=== PATIENT | male | born 1975 | race Caucasian/White ===

== ENCOUNTER 2019-06-26 13:58 | Outpatient (RCR) | payer OTHER, SELFPAY ==
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
--- NOTE | 2019-07-16 10:16 | PCPTNOTE ---
Pt has been contacted for therapy following insurance approval. He scheduled 07/20/19 due to being out of town. He will be do for his re-eval next week.
--- NOTE | 2019-07-21 08:38 | PCPTNOTE ---
Patient called & cancelled scheduled appointment this date due to being stuck out of town due to COVID-19, unable to return home at this time with travel arrangements.
--- NOTE | 2019-08-10 14:24 | PCPTNOTE ---
Admitting Provider: Dr. Guillermo Alvarenga MD Attending Provider: PHYSICIAN NOT ON STAFF Patient:Quique Rollins Date of :1975 Patient has not returned for any further treatments since initial evaluation on 06/26/2019, therefore he will be discharged at this time. Patient?s initial visit was on 06/26/2019 14:00 and he had a total of 1 visits. He called and cancelled his follow-up visits. The goals have not been met. Thank you for referring this patient to [facility]. Please review, sign, date and return this discharge summary DENA. I have been updated about the patient's current status and I agree with discharge from the above service at this time. Referring Physician Date
== END 2019-08-11 08:34 | disposition home or self-care (01) ==
LOC: ANHPT 13:58
DX: M54.5 Low back pain (principal)
CPT/HCPCS: 97162

== ENCOUNTER 2022-08-16 15:30 | Emergency (ER) | payer OTHER, SELFPAY ==
--- NOTE | ~2022-08-16 | XR_ITS ---
XR finger 2nd LT min 2V 08/16/2022 18:36 Indication: Patient cut left second finger with knife Procedure: 3 views left second finger Comparison: No prior studies for comparison. Findings: There is soft tissue laceration overlying the distal aspect of the second distal phalanx. N o foreign body. 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 No acute fracture o r traumatic malalignment. There is moderate soft tissue swelling. Impression: 1: No acute fracture. Reviewed, dictated and finalized at location A. Impression: 1: No acute fracture.
[2022-08-16 15:52] VITALS: BP 118/88; PULSE 106; RESP 18; TEMP 36.5; O2SAT 99
[2022-08-16 17:50] VITALS: BP 113/72; PULSE 69; RESP 20; TEMP 37.1; O2SAT 98
--- NOTE | 2022-08-16 18:59 | ED.GENADULT ---
HPI - General Adult General Chief complaint: Extremity Injury, Upper Stated complaint: sliced finger with knife saturday Time Seen by Provider: 08/16/22 18:33 History of Present Illness HPI narrative: 47-year-old male presented the emegency department for evaluation of a laceration to his pointer finger of his left hand on Saturday. Patient did not seek treatment after the initial injury. Patient states his tetanus is up-to-date. Patient states that when he woke up from a nap that the wound was continuing to bleed so he presented to the ED for evaluation. Related Data Allergies Allergy/AdvReac Type Severity Reaction Status Date / Time morphine Allergy Mild MIGRAINE Verified 08/16/22 18:35 AND VOMITING Penicillins Allergy Mild Migraine Verified 08/16/22 18:35 Sulfa (Sulfonamide Allergy Unknown Migraine Verified 08/16/22 18:35 Antibiotics) Review of Systems Review of Systems: All systems reviewed & are unremarkable except as noted in HPI and below Exam Narrative: APPEARANCE: Well appearing, no pain, no distress, well-nourished. HEAD: normocephalic, atraumatic. EYES: PERRLA/EOMI, conjunctivae clear. NECK: Supple. No adenopathy, no masses. RESPIRATORY: Airway patent, respirations nonlabored. Clear to auscultation bilaterally, no rales, rhonchi, wheezing. CARDIOVASCULAR: Regular rate and rhythm without murmurs rubs or gallops. ABDOMINAL: Soft, nontender, nondistended, normal bowel sounds MUSCULOSKELETAL: Moves all extremities. Strength/ROM intact, No edema, No calf tenderness. NEURO: Alert. Cranial nerves II through XII intact. Good gait. Good coordination. Affected finger is neurovascularly intact SKIN: 2 lacerations to distal tip of left pointer finger. No evidence of erythema Course Course Emergency Course: 47-year-old male with complaint of laceration to left pointer finger. X-ray was negative for fracture. Wound does not appear to be infected. Patient is neurovascular intact. Wound is too old to be sutured. Patient will be started on antibiotics. Antibiotics were started in the emergency department. Clindamycin was chosen due to patient having both sulfa and penicillin allergies. Patient and family were updated on the results of the work-up. All question concerns were addressed. Patient was encouraged of close follow-up with her primary care physician for a wound check. Vital Signs Vital signs: Vital Signs Temperature 97.7 F 08/16/22 15:52 Pulse Rate 106 H 08/16/22 15:52 Respiratory Rate 18 08/16/22 15:52 Blood Pressure 118/88 08/16/22 15:52 Pulse Oximetry 99 08/16/22 15:52 Oxygen Delivery Room Air 08/16/22 15:52 Temperature 98.7 F 08/16/22 17:50 Pulse Rate 76 08/16/22 20:15 Respiratory Rate 17 08/16/22 20:15 Blood Pressure 142/85 H 08/16/22 20:15 Pulse Oximetry 99 08/16/22 20:15 Oxygen Delivery Room Air 08/16/22 15:52 Medical Decision Making Vital Signs Vital Signs: Vital Signs Temperature 97.7 F 08/16/22 15:52 Pulse Rate 106 H 08/16/22 15:52 Respiratory Rate 18 08/16/22 15:52 Blood Pressure 118/88 08/16/22 15:52 Pulse Oximetry 99 08/16/22 15:52 Oxygen Delivery Room Air 08/16/22 15:52 Temperature 98.7 F 08/16/22 17:50 Pulse Rate 76 08/16/22 20:15 Respiratory Rate 17 08/16/22 20:15 Blood Pressure 142/85 H 08/16/22 20:15 Pulse Oximetry 99 08/16/22 20:15 Oxygen Delivery Room Air 08/16/22 15:52 Imaging Data Radiologist's impression: Impressions Finger X-Ray 08/16/22 18:38 Impression: 1: No acute fracture. Discharge Plan Discharge Clinical Impression: Finger laceration Qualifiers: Encounter type: initial encounter Finger: index finger Damage to nail status: without damage Foreign body presence: without foreign body Laterality: left Qualified Code(s): S61.211A - Laceration without foreign body of left index finger without damage to nail, initial encounter Patient Dispositi
[2022-08-16] MEDS: CLINDAMYCIN HCL 150 MG CAP PO (19:27)
[2022-08-16] MEDS: HYDROcodone/acetaminophen (*CRX) 5-325 MG TABLET 1 TAB PO (19:27)
[2022-08-16 20:15] VITALS: BP 142/85; PULSE 76; RESP 17; O2SAT 99
== END 2022-08-16 20:16 | disposition home or self-care (01) ==
PROVIDERS: Emergency Provider Emergency Medicine; PCP Family Medicine
DX: S61.211A Laceration without foreign body of left index finger without damage to nail, initial encounter (principal); W26.0XXA Contact with knife, initial encounter
CPT/HCPCS: 73140; 99283; A9270